=== PATIENT | female | born 1975 | race Caucasian/White ===

== ENCOUNTER 2017-01-27 10:28 | Day surgery (SDC) | payer OTHER ==
[~2017-01-27 10:28] MED LIST: LACTATED RINGERS 1,000 ML IV.SOLN IV ONE; LIDOCAINE HCL/PF 2% 100 MG/5 ML VIAL IJ ONE; PROPOFOL 200 MG/20 ML VIAL IV ONE; SALINE FLUSH 10 ML DISP.SYRIN IVF ONE
--- NOTE | 2017-01-28 13:45 | GI Report ---
REFERRING PHYSICIAN: Dr. Kary Yap TENTER FEEDER: Lino Ann MD PROCEDURE MEDICATION: Propofol as per anesthesia. INDICATIONS: This is a 41-year-old who has had epigastric pain, kind of burning sometimes in the evening and sometimes after meals. She denies difficulty swallowing. She is on Prilosec 40 mg and that has helped. She does not use tobacco. She is 5 feet 6 inches and weighs 75 kilograms. She had some reflux during but not a lot of vomiting. PROCEDURE PERFORMED: Endoscopy with biopsies. PROCEDURE: An Olympus video endoscope was passed through the esophagus under direct visualization. She has grade 2 or grade B esophagitis at the GE junction and it was biopsied. Cardia of the stomach shows a lax GE junction. Fundus, body, and antrum with moderate gastritis. Biopsies were taken for pathology. Duodenal bulb, first and second part of the duodenum, she had a couple of areas that the mucosal looked a little different, maybe some mild metaplasia. Biopsies were taken of that specific area. The patient tolerated the procedure well. FINDINGS: 1. Distal esophagitis. 2. Gastritis. RECOMMENDATIONS: 1. I would elevate the head of the bed about 2 to 3 inches. 2. Do not eat late at night. 3. Would take an antacid of choice after meals and always at bedtime. 4. Smaller meals. 5. A 5 to 10 pound weight loss would be beneficial. 6. If symptoms persist, impedance pH and ultrasound of the right upper quadrant would be considerations. cc: Dr. Kary SY
== END 2017-01-27 10:30 ==
LOC: OPSURG 10:28
PROVIDERS: ATTEND Internal Medicine Gastroenterology
DX: R10.9 Unspecified abdominal pain (principal); K20.9 Esophagitis, unspecified; K29.70 Gastritis, unspecified, without bleeding
CPT/HCPCS: 43235; J2001; J2704; J7120; S1016

== ENCOUNTER 2017-02-10 08:10 | Outpatient (CLI) | payer OTHER ==
--- NOTE | 2017-02-10 14:25 | Diagnostic Imaging Report ---
COLBY KERNS [facility] [id number] [facility] [address] [id number] Report Submission Date: Feb 10, 2017 1:52:49 PM CDT Patient Study Name: ENEDELIA ROCHA Date: Feb 10, 2017 9:29:02 AM CDT Modality Type: US Gender: F Description: JR SANDOVAL : 79 Institution: [facility] Physician: COLBY KERNS - MESERET Ultrasound abdomen limited History: Postprandial abdominal pain Findings: Visualized portions of the pancreas, liver, and right kidney exhibit normal echogenicity and morphology. Antegrade main portal venous flow is present. The common bile duct measures 8 mm in diameter proximally and exhibits normal distal tapering with 3 mm diameter in the pancreatic head. The gallbladder is normal in caliber without stones or wall thickening. Impression: 1. Unremarkable gallbladder. 2. Mild proximal common bile duct dilatation. However, the distal common bile duct tapers normally. Recommend correlation with liver function tests. Electronically signed on Feb 10, 2017 1:52:49 PM CDT by: Jordan SY
== END 2017-02-10 08:11 ==
LOC: RAD 08:10
PROVIDERS: ATTEND Family Medicine
DX: R10.11 Right upper quadrant pain (principal)
CPT/HCPCS: 76705

== ENCOUNTER 2019-09-27 09:40 | Outpatient (CLI) | payer OTHER ==
[2019-09-27 13:37] LABS: eGFR (Non-African) > 60
[2019-09-27 13:38] LABS: HDL 44 mg/dL (>40)
== END 2019-09-27 09:45 ==
LOC: LAB 09:40
PROVIDERS: ATTEND Family Medicine
DX: Z13.0 Encounter for screening for diseases of the blood and blood-forming organs and certain disorders involving the immune mechanism (principal); Z13.220 Encounter for screening for lipoid disorders
CPT/HCPCS: 36415; 80053; 80061; 85027